=== PATIENT | male | born 1970 | race Caucasian/White ===

== ENCOUNTER 2023-01-19 06:21 | Day surgery (SDC) | payer BC ==
[2023-01-18 10:35] VITALS: BMI 29.0
[2023-01-19 07:12] VITALS: RESP 16
[2023-01-19] MEDS ORDERED: PROPOFOL 120 ML ONE (07:26)
[2023-01-19] MEDS ORDERED: LIDOCAINE HCL/PF 2% SDV 5ML VIAL ONE (07:26)
[2023-01-19 08:37] VITALS: TEMP 97.8
[2023-01-19 08:48] VITALS: BP 138/99; PULSE 88
== END 2023-01-19 08:55 | disposition home or self-care (01) ==
LOC: FASU-ENDO 06:21
PROVIDERS: ATTEND Internal Medicine Gastroenterology
PROC: 0DB68ZX Excision of Stomach, Via Natural or Artificial Opening Endoscopic, Diagnostic (ICD-10-PCS; 2023-01-19)
PROC: 0DB48ZX Excision of Esophagogastric Junction, Via Natural or Artificial Opening Endoscopic, Diagnostic (ICD-10-PCS; 2023-01-19)
PROC: 0DB98ZX Excision of Duodenum, Via Natural or Artificial Opening Endoscopic, Diagnostic (ICD-10-PCS; principal; 2023-01-19 08:15)
DX: K29.50 Unspecified chronic gastritis without bleeding (principal); K20.90 Esophagitis, unspecified without bleeding; K44.9 Diaphragmatic hernia without obstruction or gangrene
CPT/HCPCS: 82962; 88305-TC; 88342-TC